=== PATIENT | female | born 1955 | race Caucasian/White ===

== ENCOUNTER 2020-11-19 10:17 | Emergency (ER) | payer MEDICARE, MEDICAID ==
[~2020-11-19] VITALS: Ht 157.5 cm; Wt 64.0 kg
[~2020-11-19 10:17] MED LIST: METF-416 PO
[2020-11-19] MEDS ORDERED: KETOROLAC 15MG/ML VIAL IM ONE (11:00)
[2020-11-19] MEDS ORDERED: HYDR-4346 MT (12:47)
[2020-11-19] MEDS ORDERED: ACET-2708 MT (12:47)
[2020-11-19 13:30] VITALS: BP 167/79
== END 2020-11-19 13:49 | disposition home or self-care (01) ==
LOC: ER 10:28
DX: S42.291A Other displaced fracture of upper end of right humerus, initial encounter for closed fracture (principal); I10 Essential (primary) hypertension; E11.9 Type 2 diabetes mellitus without complications; Z79.84 Long term (current) use of oral hypoglycemic drugs; W01.0XXA Fall on same level from slipping, tripping and stumbling without subsequent striking against object, initial encounter; Y93.89 Activity, other specified; Y92.010 Kitchen of single-family (private) house as the place of occurrence of the external cause
CPT/HCPCS: 73030; 73060; 73070; 73090; 96372; 99284; J1885; A4565